=== PATIENT | female | born 1980 | race Caucasian/White ===

== ENCOUNTER 2018-03-19 00:26 | Emergency (ER) | payer SELFPAY ==
[2018-03-19] MEDS ORDERED: 0.9 % SODIUM CHLORIDE 1,000 ML IV ONE (00:43)
--- NOTE | 2018-03-19 00:46 | ED Physician Documentation ---
General Adult - HISTORIAN Historian: patient - HPI Stated Complaint: fell and hit head Chief Complaint: Fall Additional Information: intro self as ZOOGLER. pt presents to the ED via POV with friend c/o fall from standing hitting back of the head. Pt reports she had five beers this jennifer. pt is a/o x 3 and able to ambulate without difficulty. pt reports nausea, dizziness. denies vomiting. pt denies current chest pain, dyspnea, syncope/near syncope, headache, visual disturbances, v/d, fever/chills, rash, sick contacts, dysuria, trauma. melena or hematochezia, bleeding or easy bruising, change in bowel or bladder function, no recent weight loss/gain, anxiety or depression. ROS Negative unless otherwise specified. - ROS CONST: no problems - PAST HX Past History: none Surgeries/Procedures: other (tubal ligation. uterine ablation. ) Allergies/Adverse Reactions: Allergies Allergy/AdvReac Type Severity Reaction Status Date / Time morphine AdvReac Nausea/Vomi Verified 03/19/18 00:48 ting Home Medications: Ambulatory Orders Medication Instructions Recorded NK 03/19/18 - SOCIAL HX Smoking History: less than 1 pack/day Alcohol Use: occasionally Drug Use: none - FAMILY HX Family History: No - VITAL SIGNS Vital Signs: Vital Signs Temp Pulse Resp BP Pulse Ox 98.5 F 126 H 16 134/97 98 03/19/18 00:31 03/19/18 00:31 03/19/18 00:31 03/19/18 00:31 03/19/18 00:31 - REVIEWED ASSESSMENTS Nursing Assessment Reviewed: Yes Vitals Reviewed: Yes Progress - Progress Progress: 0205- 115/71. 94 HR. 20 RR 97% RA. pt reports improvement in symptoms and readiness for D/C with ride home. she reports she is safe at home. ED Results Lab/Radiology - Radiology Radiology Impressions: Report Submission Date: Mar 19, 2018 1:54:19 AM SALES STOCK ASSOCIATE Patient Study Name: DENISE GARCIA Date: Mar 19, 2018 1:26:26 AM SALES STOCK ASSOCIATE Modality Type: CT\SR Gender: F Description: CT BRAIN W/O CONTRAST : 80 Institution: [facility] Physician: JOSSIE ANGEL CT brain noncontrast Date of study: March 19, 2018 CLINICAL HISTORY: 38/F POST FALL - HEAD AND NECK INJURY / PAIN / VERTIGO (Hx) / ITS.REASON head injury fall from standing (DICOM Hx) TECHNIQUE: 5 mm contiguous axial images of the brain, noncontrast. FINDINGS: There is no evidence of intracranial mass effect, hemorrhage, or acute hydrocephalus. The lateral ventricles are symmetrical and the 4th ventricle is midline without shift. No acute brain parenchymal changes or extra-axial fluid collections are identified. The posterior fossa contents are within normal limits. The calvarium is intact. The visualized sinuses and mastoid air cells are clear. There is a posterior scalp hematoma. IMPRESSION: No acute intracranial process. Electronically signed on Mar 19, 2018 1:54:19 AM SALES STOCK ASSOCIATE by: General Adult Physical Exam - PHYSICAL EXAM GENERAL APPEARANCE: no distress EENT: eye inspection normal, ENT inspection normal, pharynx normal, no signs of dehydration, [place], no nystagmus, TM's nml NECK: normal inspection, thyroid normal. No: lymphadenopathy RESPIRATORY: no resp distress, chest non-tender, breath sounds normal CVS: reg rate & rhythm, heart sounds normal, equal pulses, no murmur, no gallop, PMI nml, no JVD, no friction rub, 24 ABDOMEN: soft, no organomegaly, normal bowel sounds, no abdominal bruit, no distension BACK: normal inspection, no CVA tenderness SKIN: normal color, warm/dry, NR, INT, PAL, DR EXTREMITIES: non-tender, normal range of motion, no evidence of injury, no edema, J, ZOOGLER NEURO: oriented X3, motor nml, sensation nml, mood/affect nml Discharge Clincal Impression: Hematoma Fall Qualifiers: Encounter type: initial encounter Qualified Code(s): W19.XXXA - Unspecified fall, initial encounter Head injury without concussion or intracranial hemorrhage Qualifiers: Encounter type: initial encounter Qualified Code(s): S09.90XA - Unspecified injury of head, initial encounter Sinusitis Qualifiers: Sinusitis location: unspecified location Chronicity: acute Recurrence: not specified as recurrent Qualified Code(s): J01.90 - Acute sinusitis, unspecified Referrals: Primary Doctor,No [Primary Care Provider] - 2 Days Additional Instructions: azithromycin 250 mg 2 tabs day one. one tab days 2-5 rest seek medical care immediately if difficult to wake, difficulty breathing, feeling faint or fainting, increased rash, chest pain, shortness of breath, or fever not controlled by tylenol/motrin or any concern. follow up with primary care next week or before if not improving as expected. PLEASE UNDERSTAND THAT THIS IS AN EMERGENCY EVALUATION FOR YOUR COMPLAINT AND BY NATURE IS LIMITED AND NOT A SUBSTITUTE FOR ONGOING MEDICAL CARE. EVEN THOUGH TEST RESULTS AND TREATMENT PLAN WERE EXPLAINED THERE MAY BE A NEED FOR ADDITIONAL TESTING TO FULLY DETERMINE THE EXTENT OF YOUR ILLNESS/INJURY/OR CONCERN SO YOU SHOULD CONTACT AND OR ESTABLISH WITH A PRIMARY CARE PROVIDER (OR REFERRAL DOCTOR IF APPLICABLE) FOR AN APPOINTMENT SOON POSSIBLE Condition: Good Disposition: 01 HOME, SELF-CARE Decision to Admit: NO Date of Decison to Admit: 03/19/18 Decision Time: 01:51
[2018-03-19 01:15] LABS: eGFR (Non-African) > 60
[2018-03-19] MEDS ORDERED: ONDANSETRON HCL/PF 4 MG/ 2ML VIAL IVP ONE (01:58)
[2018-03-19] MEDS ORDERED: KETOROLAC TROMETHAMINE 30 MG/1ML VIAL IVP STA (02:15)
[2018-03-19 03:07] VITALS: BP 111/86
--- NOTE | 2018-03-19 03:11 | Diagnostic Imaging Report ---
JOSSIE ANGEL [facility] [address] [facility] [address] [place], [place]. [address] Report Submission Date: Mar 19, 2018 1:54:19 AM ENGLISH PROFESSOR Patient Study Name: DENISE GARCIA Date: Mar 19, 2018 1:26:26 AM ENGLISH PROFESSOR Modality Type: CT\SR Gender: F Description: CT BRAIN W/O CONTRAST : 80 Institution: [facility] Physician: JOSSIE ANGEL CT brain noncontrast Date of study: March 19, 2018 CLINICAL HISTORY: 38/F POST FALL - HEAD AND NECK INJURY / PAIN / VERTIGO (Hx) / ITS.REASON head injury fall from standing (DICOM Hx) TECHNIQUE: 5 mm contiguous axial images of the brain, noncontrast. FINDINGS: There is no evidence of intracranial mass effect, hemorrhage, or acute hydrocephalus. The lateral ventricles are symmetrical and the 4th ventricle is midline without shift. No acute brain parenchymal changes or extra-axial fluid collections are identified. The posterior fossa contents are within normal limits. The calvarium is intact. The visualized sinuses and mastoid air cells are clear. There is a posterior scalp hematoma. IMPRESSION: No acute intracranial process. Electronically signed on Mar 19, 2018 1:54:19 AM ENGLISH PROFESSOR by: Ramón MARR
--- NOTE | 2018-03-19 03:12 | Diagnostic Imaging Report ---
JOSSIE ANGEL [facility] [id number] [facility] [address] [place] [address]. [id number] Report Submission Date: Mar 19, 2018 2:47:35 AM PROGRAM MANAGEMENT PROFESSIONAL Patient Study Name: DENISE GARCIA Date: Mar 19, 2018 1:29:37 AM PROGRAM MANAGEMENT PROFESSIONAL Modality Type: CT\SR Gender: F Description: CT C-SPINE W/O CONTRAS : 80 Institution: [facility] Physician: JOSSIE ANGEL CT cervical spine. Date of study: 03/19/2018. CLINICAL HISTORY: 38/F POST FALL - HEAD AND NECK INJURY / PAIN / VERTIGO TECHNIQUE: 2.5 mm contiguous axial images of the cervical spine with sagittal and coronal reconstructions. FINDINGS: The cervical spine alignment is normal. The cervical vertebral bodies are of normal height and the intervertebral disc spaces are of average width. The cervical vertebral bodies and posterior elements are intact. The spinal canal diameter is normal. There is no evidence of acute fracture or subluxation. The facets are in proper relationship bilaterally. The craniocervical and cervicothoracic junctions are normal. Mucosal thickening in the maxillary, ethmoid, frontal and sphenoid sinuses is incidentally noted. There is no air- fluid level or bony destruction. IMPRESSION: No evidence of acute cervical spine fracture or subluxation. Chronic paranasal sinus changes. Electronically signed on Mar 19, 2018 2:47:35 AM PROGRAM MANAGEMENT PROFESSIONAL by: Fran MARR
[2018-03-19 07:02] LABS: MEAN CORPUSCULAR HEMOGLOBIN 29.9 pg (28.0-34.0)
== END 2018-03-19 03:05 | disposition home or self-care (01) ==
LOC: ED 00:26
DX: S00.03XA Contusion of scalp, initial encounter (principal); J01.90 Acute sinusitis, unspecified; W18.30XA Fall on same level, unspecified, initial encounter; Y93.9 Activity, unspecified; Y92.9 Unspecified place or not applicable
CPT/HCPCS: 36415; 70450; 72125; 80048; 85027; 96374; 96375; 99283; 99285; J1885; J2405; J7030; S1016